=== PATIENT | male | born 1960 | race Caucasian/White ===

== ENCOUNTER 2025-03-08 11:28 | Emergency (ER) | payer MEDICARE, SELFPAY ==
[2025-03-08] VITALS (17 sets, daily range): BP systolic 80–209; BP diastolic 49–107; PULSE 63–143; RESP 16–24; TEMP 36.7–37.2; O2SAT 91–96; BMI 48.6
--- NOTE | 2025-03-08 | XR_ITS ---
MRI abdomen, without contrast. MRCP Date and time of exam: March 08, 2025, 1741 hrs. Indications: Abdominal distention beginning 3 days ago, CT abdomen pelvis study today is distended gallbladder with 3 mm gallstone, edema around the pancreas, enlarged common hepatic common bile duct 11 mm stone in the distal common duct Technique: Multiple axial and coronal images of the abdomen have been obtained with the Siemens 1.5T MRI scanner. Images obtained included T1 weighted transverse images, T2-weighted transverse images, T2-weighted transverse images fat-suppressed, T2 weighted haste fat suppressed transverse images, T1 weighted images, in and out of phase images, T2-weighted coronal images, breath hold, T2 weighted haze coronal images as well as T2 weighted coronal thick slab images, MRCP. Findings: Intrahepatic biliary tract dilatation. Multiple gallstones. Thickened edematous gallbladder wall. Common hepatic duct AP millimeters common bile duct 14 mm 10 mm, in the distal common bile duct, 5 mm impacted stone in the terminal common bile duct Edema around the pancreas Spleen is not enlarged No hydronephrosis Impression: Acute calculus cholecystitis Significant extrahepatic biliary tract dilatation, millimeter, 5 mm stone in the distal common bile duct Acute pancreatitis
--- NOTE | 2025-03-08 11:59 | EDNOTE_ITS ---
ED Abdominal Pain RME/HPI General Chief Complaint: Abdominal Pain Stated complaint: ABD PAIN Time seen by provider: 03/08/25 11:53 Arrival date/time: 03/08/25 11:28 Limitations: no limitations RME / HPI RME / HPI narrative: 64 year old male with history of atrial fibrillation, hypertension, lower limb chronic vein stasis with chronic ulcers, hyperlipidemia, hypothyroidism, and previous umbilical hernia that was surgically repaired with resection of 2 feet of his intestine presents to the ED BIBA from home for evaluation of epigastric abdominal pain beginning intermittently 3 days ago and remaining constant since last night. Described as gas pains he rates as moderate. Accompanied by chills, subjective fevers (Tmax 100.5F), decreased appetite, and passing a lot of gas . Last bowel movement yesterday and normal for him. States at home, applying a warm pack on abdomen provides some relief. Denies a burning sensation, chest pain, cough, shortness of breath, vomiting, diarrhea, constipation, or urinary symptoms. Though does mention his urine was darker in color this morning. Related Data Home Medications ?Medication ?Instructions ?Recorded ?Confirmed Levothyroxine * (SYNTHROID *) 50 mcg PO QDAY #0 tabs 0 02/06/15 07/26/23 rivaroxaban 20 mg tablet (Xarelto) 20 mg PO 1XD 07/26/23 zinc sulfate 50 mg zinc (220 mg) 50 mg PO QDAY 4 07/26/23 tablet Previous Rx's ?Medication ?Instructions ?Recorded ascorbic acid (vitamin C) 250 mg 1,000 mg (4 x 250 mg) PO DAILY 02/16/15 tablet (Vitamin C) #100 tabs nitrofurantoin 100 mg PO BID #14 caps 10/25 monohydrate/macrocrystals 100 mg capsule (Macrobid) Allergies Allergy/AdvReac Type Severity Reaction Status Date / Time codeine Allergy Severe Headache Verified 03/08/25 11:51 bacitracin Allergy Unknown Hives Verified 03/08/25 11:51 Bacitracin Zinc Allergy Unknown Hives Verified 03/08/25 11:51 cephalexin Allergy Unknown Rash Verified 03/08/25 11:51 neomycin sulfate Allergy Unknown Hives Verified 03/08/25 11:51 Penicillins Allergy Unknown Verified 03/08/25 11:51 polymyxin B Allergy Unknown Hives Verified 03/08/25 11:51 Quinolones Allergy Unknown Rash Verified 03/08/25 11:51 Review of Systems Review of Systems Systems Reviewed: All systems reviewed, normal except as documented Past Medical History Past Medical History CARDIAC: Positive Cardiac Disorders, Atrial Fibrillation, Peripheral Vascular Disease, Edema, Cellulitis and Hypertension GASTROINTESTINAL: Positive Gastrointestinal Disorders and Gastroesophageal Ref lux Disease MUSCULOSKELETAL: Positive Musculoskeletal Disorders and Osteomyelitis ENDOCRINE: Positive Endocrine Disorders, Diabetes Mellitus Type 2 and Hypothyroidism Surgical History SURGICAL: Positive Amputation (second toe on left foot) Social History SMOKING STATUS: Never smoker ED Exam General Limitations: Present no limitations General appearance: Present alert, in no apparent distress and obese Head Head exam: Present atraumatic, normocephalic and normal inspection Eye Eye exam: Present normal appearance, PERRL and EOMI ENT ENT exam: Present normal exam, normal oropharynx and mucous membranes moist Neck Neck exam: Present normal inspection, full ROM and trachea midline Chest Chest inspection: Present normal inspection and symmetric chest wall rise Respiratory Respiratory exam: Present normal lung sounds bilaterally Cardiovascular Cardiovascular exam: Present regular rate, normal rhythm and other (distant heart sounds ) Abdominal Exam Abdominal exam: Present soft, tenderness (1+ tenderness across upper abdomen ) and normal bowel sounds Extremities Exam Extremities exam: Present full ROM and other (chronic venous stasis changes bilateral lower extremities ) Back Exam Back exam: Present normal inspection and full ROM Neurological Exam Neurological exam: Present alert, oriented X3 and CN II-XII intact Psychiatric Psychiatric exam: Present normal affect and normal mood Skin Skin exam: Present warm, dry, intact and normal color Course Quality Measures none Orders Category Date Time Status CT Screening NOW Care 03/08/25 12:11 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 Care 03/08/25 11:57 Completed Continuous Pulse Oximetry STAT Care 03/08/25 11:57 Completed EKG (ED ONLY) *Do not use* NOW Care 03/08/25 19:08 Completed Insert IV STAT Care 03/08/25 11:57 Completed MRI Screening NOW Care 03/08/25 15:55 Completed NPO STAT Care 03/08/25 11:[address] abdomen pelvis w con Stat Exams 03/08/25 12:11 Completed EKG (ED Only) Stat Exams 03/08/25 19:08 Draft MR MRCP Stat Exams 03/08/25 Completed Bilirubin,Direct Stat Lab 03/08/25 12:19 Completed CBC Stat Lab 03/08/25 12:19 Completed Comprehensive Metabolic Panel Stat Lab 03/08/25 12:19 Completed Lipase Stat Lab 03/08/25 12:19 Completed Magnesium Stat Lab 03/08/25 12:19 Completed Prothrombin Time with INR Stat Lab 03/08/25 12:19 Completed Urinalysis Stat Lab 03/08/25 19:28 Completed Dextrose 5%-Water [D5w] 100 ml Med 03/08/25 20:29 Discontinued Diltiazem Inj [Cardizem Inj] 125 mg IV 5 mg/hr Diltiazem Inj [Cardizem Inj] Med 03/08/25 20:03 Discontinued 20 mg IV X1 ONE MethylPREDNISolone.* [SoluMEDROL Inj] Med 03/08/25 21:11 Discontinued 125 mg IVP X1 ONE Metoprolol Tartrate [Lopressor] Med 03/08/25 18:44 Discontinued 50 mg PO X1 ONE Morphine* Inj Med 03/08/25 11:57 Discontinued 4 mg IVP X1 ONE Ondansetron Inj [Zofran Inj] Med 03/08/25 11:57 Discontinued 4 mg IVP X1 ONE Pantoprazole Inj [Protonix Inj] Med 03/08/25 11:57 Discontinued 40 mg IVP X1 ONE Sodium Chloride 0.9% 1000 ml [Ns] 1,000 ml Med 03/08/25 11:57 Discontinued IV 999 mls/hr cefTRIAXone/D5w 1gm IV premix [Rocephin/D5w 1gm IV Med 03/08/25 21:11 Discontinued premix] 50 ml IV X1 cloNIDine HCL [Catapres] Med 03/08/25 18:44 Discontinued 0.3 mg PO X1 ONE metroNIDAZOLE/NS 500 MG IVPB [Flagyl 500 mg IV] Med 03/08/25 19:46 Discontinued 500 mg in 100 ml IV X1 Vital Signs Vital signs: Vital Signs Temperature 98.0 F 03/08/25 11:52 Pulse Rate 69 03/08/25 11:52 Respiratory Rate 16 03/08/25 11:52 Blood Pressure 134/88 H 03/08/25 11:52 Pulse Oximetry (%) 95 03/08/25 11:52 Oxygen Delivery Method Room Air 03/08/25 11:52 Pulse ox is 95% on room air which is adequate. Abdominal Pain MDM MDM Narrative MDM Narrative:: IUsha am scribing for and in the presence of Dr. Samayoa. 1800: Patient signed out to Dr. Matrinez pending MRCP and final disposition. Patient data External records reviewed:: [facility] previous records (I reviewed ED visit on 10/26/2023 ) and EMS form Clinical information provided by:: patient and EMS Social determinants that could affect healthcare access:: none Patient has the following chronic illnesses:: atrial fibrillation, hypertension, lower limb chronic vein stasis with chronic ulcers, hyperlipidemia, hypothyroidism, and previous umbilical hernia that was surgically repaired with resection of 2 feet of his intestine How is presenting disease/condition affected by chronic disease/condition?: exacerbated by Evaluation data The following diagnostics were reviewed and interpreted by me:: lab results and radiology exam(s) Lab and/or radiology exams considered but not ordered:: None Interpretation Summary: Ordering Physician: Randolph Samayoa MD Date of Service: 03/08/25 Procedure(s): CT abdomen pelvis w con Accession Number(s): [id number] cc: Randolph Samayoa MD; Erik Anaya MD; NO PRIMARY/FAMILY,PHYSICIAN~ Examination: CT abdomen with intravenous contrast CT pelvis with intravenous contrast 2-D coronal reconstructions 2-D sagittal reconstructions Date and time of exam:March 08, 2025 1342 hours, comparison April 24, 2023 INDICATIONS: Generalized abdominal pain and distention beginning 3 days ago. CTDI: vol (mGy) 26.8 DLP: (mGycm) 2032 Technique: Multiple axial sections of the abdomen and pelvis have been obtained. 64 slice high-resolution scanner used. 3 mm axial sections have been obtained, post intravenous injection 60 cc [id number] 2-D sagittal, coronal reconstructions obtained. Low dose protocols were performed. One or more of the following dose reduction techniques were used; automated exposure control, adjustment of the mA and/or KV according to patient size, use of iterative reconstruction technique. Findings: No focal liver lesions Distended gallbladder with 3 mm gallstone Edema surrounding the pancreas Enlarged common hepatic duct 17 mm common bile duct 15 mm Suspicious for 2 mm stone in the distal common bile duct axial image 119 5 mm 10 mm right renal calculi with significant right renal scarring No hydronephrosis or ureteral calculi No bowel obstruction No significant prostatomegaly No bladder mass or bladder calculi Prominent osteopenia Moderate disc narrowing L5-S1 Advanced disc narrowing L1-L2 with prominent cortical bone destruction involving contiguous margins IMPRESSION: Cholelithiasis, distended gallbladder with extrahepatic biliary tract dilatation, common hepatic duct 17 mm Suspicious for 2 mm stone in the distal common bile duct, recommend MRCP follow-up Acute pancreatitis Suspicious for osteomyelitis discitis at the L1-L2 level, consider elective MRI lumbar spine follow-up pre and postcontrast Dictated By: Erik Anaya MD Signed By: <Electronically signed by Erik Anaya MD in OV> 03/08/25 1400 Medications / Prescriptions Medications or Prescriptions considered but not ordered:: None Medication administrations:: Medication Administration History Discontinued Medications Clonidine (Clonidine Hcl 0.1 Mg Tablet) 0.3 mg PO X1 ONE Stop: 03/08/25 18:45 Last Admin: 03/08/25 19:27 Dose: 0.3 mg Documented By: LEDY Diltiazem HCl (Diltiazem Inj 5 Mg/Ml Vial 5 Ml) 20 mg IV X1 ONE Stop: 03/08/25 20:04 Last Admin: 03/08/25 20:16 Dose: 20 mg Documented By: LEDY Sodium Chloride (Ns) 1,000 mls @ 999 mls/hr IV .Q1H1M ONE Stop: 03/08/25 12:57 Last Infusion: 03/08/25 15:03 Dose: Infused Documented By: Admin: 03/08/25 12:42 Dose: 999 mls/hr Documented By: ALPHONSE Metronidazole (Flagyl 500 Mg Iv) 500 mg in 100 mls @ 100 mls/hr IV X1 ONE Stop: 03/08/25 20:45 Last Infusion: 03/08/25 21:09 Dose: Infused Documented By: Admin: 03/08/25 19:53 Dose: 100 mls/hr Documented By: LEDY Diltiazem HCl 125 mg/ Dextrose 125 mls @ 5 mls/hr IV .Q24H [place] Stop: 04/07/25 20:28 Last Infusion: 03/08/25 21:50 Dose: Infused Documented By: Admin: 03/08/25 20:43 Dose: 5 mg/hr, 5 mls/hr Documented By: LEDY Ceftriaxone Sodium/Dextrose (Rocephin/D5w 1gm Iv Premix) 50 mls @ 100 mls/hr IV X1 ONE Stop: 03/08/25 21:40 Methylprednisolone Sodium Succinate (Methylprednisolone Sod Succ 62.5 Mg/Ml 2ml Vial) 125 mg IVP X1 ONE Stop: 03/08/25 21:12 Last Admin: 03/08/25 22:11 Dose: 125 mg Documented By: LEDY Metoprolol Tartrate (Metoprolol Tartrate 25 Mg Tablet) 50 mg PO X1 ONE Stop: 03/08/25 18:45 Last Admin: 03/08/25 19:27 Dose: 50 mg Documented By: LEDY Morphine Sulfate (Morphine Sulf Inj 4 Mg/Ml Vial) 4 mg IVP X1 ONE Stop: 03/08/25 11:58 Last Admin: 03/08/25 15:09 Dose: 4 mg Documented By: GM Ondansetron HCl (Ondansetron Inj 2 Mg/Ml Inj 2 Ml) 4 mg IVP X1 ONE Stop: 03/08/25 11:58 Last Admin: 03/08/25 12:42 Dose: 4 mg Documented By: GM Pantoprazole Sodium (Pantoprazole Inj 40 Mg Vial) 40 mg IVP X1 ONE Stop: 03/08/25 11:58 Last Admin: 03/08/25 12:41 Dose: 40 mg Documented By: GM See above Consultations Consultation(s) initiated? (list below): No Diagnosis Differential diagnosis abdominal pain: abdominal pain, calculus of kidney, constipation, diverticulitis, gastroenteritis and other (gastritis) Most likely diagnosis given after review of the tests above:: Abdominal pain Pancreatitis Admission Indicated Admission indicated?: not indicated Admission Request Was there a request for admission?: No Disposition Plan Disposition Plan: other (specify) (Signed out to Dr. Martinez ) Discharge Plan Plan Patient Disposition: [facility] Care [facility] Facility Pt Being Transferred to: [facility] Service Needed for Transfer: Gastroenterology Prescriptions/Referrals Prescriptions/Med Rec: No Action Levothyroxine * (SYNTHROID *) 50 MCG tablet 50 mcg PO QDAY Qty: 0 ascorbic acid (vitamin C) [Vitamin C] 250 MG tablet 1,000 mg PO DAILY Qty: 100 0RF zinc sulfate 50 mg zinc (220 mg) Tablet 50 mg PO QDAY Xarelto 20 mg tablet 20 mg PO 1XD nitrofurantoin monohyd/m-cryst [Macrobid] 100 mg capsule 100 mg PO BID Qty: 14 0RF Rx Instructions: must administer with a meal/food Referrals: No Primary/Family,Physician [Primary Care Provider] - In 1 week Problem List Clinical Impression: Choledocholithiasis, Cholecystitis, Pancreatitis, UTI (urinary tract infection), Atrial fibrillation with RVR, Hypertensive urgency Patient/Caregiver Discharge Instructions Print Language: Czech Stand Alone Forms: Rosalba Award Info., Patient Portal Info Letter Attestation Attestation I took over the care from Dr. Samayoa at 6 PM on 03/08/2025, see his notes for complete H&P and ED course. High BP noted. I reviewed all diagnostic test results. My interpretation of the EKG is: Atrial fibrillation with RVR (140 bpm) with nonspecific ST-T changes. My review of the abdominal CT report is cholelithiasis and CBD stone and pancreatitis. My review of the MRCP report is cholelithiasis and CBD stone and pancreatitis. Blood tests are remarkable for T. bili 8.6, D bili 6.0, AST 108, ALT 187, alk phos 248, lipase 2787. UA showed positive leukocyte esterase, 69 RBC, 13 WBC, and 3+ bacteria. At this point, diagnoses include: Choledocholithiasis Pancretitis Cholecystitis UTI AFib RVR Hypertensive urgency Treatment here from me included: Cardizem bolus and drip Clonidine Metoprolol Flagyl and Rocephin I discussed the case with Dr. Mays, leaflet distributor at [facility]. About the presentation and exam and diagnostics and treatments here. And need of further care in the hospital there. Agreed to accept the patient. Galo Martinez MD
--- NOTE | 2025-03-08 12:11 | XR_ITS ---
Examination: CT abdomen with intravenous contrast CT pelvis with intravenous contrast 2-D coronal reconstructions 2-D sagittal reconstructions Date and time of exam:March 08, 2025 1342 hours, comparison April 24, 2023 INDICATIONS: Generalized abdominal pain and distention beginning 3 days ago. CTDI: vol (mGy) 26.8 DLP: (mGycm) 2032 Technique: Multiple axial sections of the abdomen and pelvis have been obtained. 64 slice high-resolution scanner used. 3 mm axial sections have been obtained, post intravenous injection 60 cc Isovue-370 2-D sagittal, coronal reconstructions obtained. Low dose protocols were performed. One or more of the following dose reduction techniques were used; automated exposure control, adjustment of the mA and/or KV according to patient size, use of iterative reconstruction technique. Findings: No focal liver lesions Distended gallbladder with 3 mm gallstone Edema surrounding the pancreas Enlarged common hepatic duct 17 mm common bile duct 15 mm Suspicious for 2 mm stone in the distal common bile duct axial image 119 5 mm 10 mm right renal calculi with significant right renal scarring No hydronephrosis or ureteral calculi No bowel obstruction No significant prostatomegaly No bladder mass or bladder calculi Prominent osteopenia Moderate disc narrowing L5-S1 Advanced disc narrowing L1-L2 with prominent cortical bone destruction involving contiguous margins IMPRESSION: Cholelithiasis, distended gallbladder with extrahepatic biliary tract dilatation, common hepatic duct 17 mm Suspicious for 2 mm stone in the distal common bile duct, recommend MRCP follow-up Acute pancreatitis Suspicious for osteomyelitis discitis at the L1-L2 level, consider elective MRI lumbar spine follow-up pre and postcontrast
[2025-03-08 12:25] LABS: Basophils # (Auto) 0.0 Thou/mm3 (0.0-0.2); Basophils % (Auto) 0 % (0-2.5); Eosinophils # (Auto) 0.0 Thou/mm3 (0.0-0.5); Eosinophils % (Auto) 0 % (0-10); Hematocrit 43.4 % (41.0-53.0); Hemoglobin 15.0 g/dL (13.5-16.0); Immature Granulocytes Auto 0.04 Thou/mm3 (0.00-0.00); Lymphocytes # (Auto) 0.6 Thou/mm3 (1.0-4.8); Lymphocytes % (Auto) 7 % (10-50); Mean Corpuscular HGB Conc 34.6 g/dl (31.0-37.0); Mean Corpuscular Hemoglobin 32.5 pg (25.0-35.0); Mean Corpuscular Volume 94 fL (80-100); Monocytes # (Auto) 0.3 Thou/mm3 (0.0-0.8); Monocytes % (Auto) 3 % (0-12); Neutrophils # (Auto) 7.8 Thou/mm3 (1.8-7.7); Neutrophils % (Auto) 89 % (37-80); Nucleated Red Blood Cell # 0.00 Thou/mm3 (0.00-0.00); Nucleated Red Blood Cell % 0 /100 WBC (0); Platelet Count 173 Thou/mm3 (140-440); RDW Standard Deviation 45.3 fL (35.1-43.9); Red Blood Count 4.62 Miln/mm3 (4.50-5.90); White Blood Count 8.8 Thou/mm3 (3.8-10.6)
[2025-03-08] MEDS: ONDANSETRON INJ 2 MG/ML INJ 2 ML 4 MG IVP (12:42)
[2025-03-08] MEDS: SODIUM CHLORIDE 0.9% 1000 ML 1,000 ML 999 ML IV (12:42)
[2025-03-08 12:47] LABS: INR 1.7 (0.9-1.3); Prothrombin Time 17.8 Seconds (9.0-12.2)
[2025-03-08 12:55] LABS: Alanine Aminotransferase 187 U/L (10-49); Albumin, Serum 3.8 gm/dL (3.4-4.8); Albumin/Globulin Ratio 1.1 (1.2-2.2); Alkaline Phosphatase 248 U/L (46-116); Anion Gap 13 (7-16); Aspartate Amino Transferase 108 U/L (0-34); BUN/Creatinine Ratio 14 Ratio (12-20); Bilirubin,Total 8.6 mg/dL (0.3-1.2); Blood Urea Nitrogen 15 mg/dL (9-23); Calcium 9.5 mg/dL (8.3-10.6); Calcium (Corrected) 9.7 mg/dL (8.5-10.1); Carbon Dioxide 24.9 mMol/L (20.0-31.0); Chloride 100 mMol/L (98-107); Creatinine (Component) 1.1 mg/dL (0.6-1.3); Estimated Creatinine Clearance 116.4 mL/min (>60); Globulin 3.4 gm/dL (2.3-3.5); Glucose 175 mg/dL (74-106); Lipase 2787 U/L (12-53); Magnesium 1.8 mg/dL (1.6-2.6); Osmolality,Calculated 280 (275-295); Potassium 4.1 mMol/L (3.4-5.1); Sodium 138 mMol/L (136-145); Total Protein 7.2 gm/dL (5.7-8.2); eGFR > 60 See Note
[2025-03-08] MEDS: MORPHINE SULF INJ 4 MG/ML VIAL IVP (15:09)
--- NOTE | 2025-03-08 18:22 | EDNOTE_ITS ---
Emergency Room Addendum <Katelynn Diaz - Last Filed: 03/08/25 21:13> Addendum Narrative: I took over the care from Dr. Samayoa at 6 PM on 03/08/2025, see his notes for complete H&P and ED course. I reviewed all diagnostic test results. My interpretation of the EKG is: Probable atrial flutter versus fibrillation (140 bpm) with nonspecific ST-T changes. Galo Martinez MD My review of the MRCP report is: - Acute calculus cholecystitis - Significant extrahepatic biliary tract dilatation, millimeter, 5 mm stone in the distal common bile duct - Acute pancreatitis At this point, diagnoses include: Choledocholithiasis Pancretitis Cholecystitis UTI AFib RVR Treatment here included: Cardizem bolus and drip Clonidine Metoprolol Flagyl Solumedrol I discussed the case with Dr. Mays, clinical documentation nurse from [facility]. About the presentation and exam and diagnostics and treatments here. And need of further care in the hospital there. Will accept the patient. Galo Martinez MD <Galo Martinez MD - Last Filed: 03/09/25 05:56> Addendum Narrative: I took over the care from Dr. Samayoa at 6 PM on 03/08/2025, see his notes for complete H&P and ED course. High BP noted. I reviewed all diagnostic test results. My interpretation of the EKG is: Atrial fibrillation with RVR (140 bpm) with nonspecific ST-T changes. My review of the abdominal CT report is cholelithiasis and CBD stone and pancreatitis. My review of the MRCP report is cholelithiasis and CBD stone and pancreatitis. Blood tests are remarkable for T. bili 8.6, D bili 6.0, AST 108, ALT 187, alk phos 248, lipase 2787. UA showed positive leukocyte esterase, 69 RBC, 13 WBC, and 3+ bacteria. At this point, diagnoses include: Choledocholithiasis Pancretitis Cholecystitis UTI AFib RVR Hypertensive urgency Treatment here from me included: Cardizem bolus and drip Clonidine Metoprolol Flagyl and Rocephin I discussed the case with Dr. Mays, clinical documentation nurse at [facility]. About the presentation and exam and diagnostics and treatments here. And need of further care in the hospital there. Agreed to accept the patient. Galo Martinez MD
--- NOTE | 2025-03-08 19:08 | EKG_ITS ---
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: : 1960 Requested By: Galo Collins Order Number: [id number] Reading MD: Galo Collins Measurements Intervals [place] Rate: 140 P: -64 WA: 111 QRS: 84 QRSD: 168 T: -8 QT: 314 QTc: 479 Interpretive Statements JUNCTIONAL TACHYCARDIA, POSSIBLE ATRIAL FLUTTER RIGHT BUNDLE BRANCH BLOCK [120+ ms QRS DURATION, UPRIGHT V1, 40+ ms S IN I/aVL/V4/V5/V6] ST DEPRESSION, CONSIDER SUBENDOCARDIAL INJURY [0.1+ mV ST DEPRESSION] Compared to ECG 10/26/2023 17:23:38 Right bundle-branch block now present ST (T wave) deviation now present Sinus tachycardia no longer present Intraventricular conduction delay no longer present /store/S0/[id number]/[id number].pdf
[2025-03-08] MEDS: METOPROLOL TARTRATE 25 MG TABLET 50 MG PO (19:27)
[2025-03-08 19:47] LABS: Collection Type, Urine Clean Catch
[2025-03-08 19:49] LABS: Bilirubin,Direct 6.0 mg/dL (0.0-0.3)
[2025-03-08] MEDS: metroNIDAZOLE/NS 500 MG IVPB 500 MG/100 ML BAG 100 MG IV (19:53)
[2025-03-08 20:03] LABS: Amorphous Crystals,Urine Present (Absent); Bacteria,Urine 3+; Bilirubin,Urine 2+ (Negative); Blood,Urine 3+ (Negative); Clarity,Urine Clear (Clear/Hazy); Color,Urine Drk-Yellow (Lt Yel-Yel); Glucose, Urine Negative (Negative); Ketones,Urine 1+ (Negative); Leukocyte Esterase,Urine Positive (Negative); Nitrite,Urine Negative (Negative); PH,Urine 6.0 (5.0-7.0); Protein,Urine 1+ (Neg - Trace); RBC,Urine 69 /hpf (0-3); Squamous Epithelial Cell,Urine 2 /hpf (0-5); Urobilinogen,Urine 8.0 mg/dL (0.0-1.0); WBC,Urine 13 /hpf (0-5)
[2025-03-08 20:09] LABS: Specific Gravity,Urine 1.020 (1.001-1.035)
[2025-03-08] MEDS: DILTIAZEM INJ 5 MG/ML VIAL 5 ML 20 MG IV (20:16)
[2025-03-08] MEDS: DILTIAZEM INJ 125 MG in DEXTROSE 5%-WATER 100 ML IV (20:43)
--- NOTE | 2025-03-08 21:38 | PC.LAC ---
Report called to Flakita at [facility] for report
--- NOTE | 2025-03-08 21:50 | PC.NURSE ---
Gcs 15 map 58-dilt gtt on hold. Notified Dr. Martinez, no new orders. Hr 108
[2025-03-08] MEDS: MethylPREDNISolone SOD SUCC 62.5 MG/ML 2ML VIAL 125 MG IVP (22:11)
--- NOTE | 2025-03-08 22:14 | W.PC.EDHO ---
Report given to Royer with [facility] for transfer
== END 2025-03-08 22:23 | disposition short-term general hospital (02) ==
PROVIDERS: Family Medicine; Emergency Provider Emergency Medicine
DX: K80.60 Calculus of gallbladder and bile duct with cholecystitis, unspecified, without obstruction (principal); N39.0 Urinary tract infection, site not specified; K85.90 Acute pancreatitis without necrosis or infection, unspecified; I48.20 Chronic atrial fibrillation, unspecified; I16.0 Hypertensive urgency; E03.9 Hypothyroidism, unspecified; E78.5 Hyperlipidemia, unspecified; I10 Essential (primary) hypertension
CPT/HCPCS: 36415; 74177; 74181; 80053; 81001; 82248; 83690; 83735; 85025; 85610; 96361; 96365; 96375; 99284; A4649; J2270; J2405; J2470; J2919; J3490; J7030; Q9967; A9270; J1836